=== PATIENT | female | born 1945 | race Two or more races ===

== ENCOUNTER 2023-09-10 22:28 | Inpatient (IN) | payer MEDICARE ==
[~2023-09-10] VITALS: Ht 158 cm; Wt 65.3 kg
[2023-09-10] MEDS ORDERED: MAGNESIUM HYDROXIDE 30 ML UDC PO PRN (23:30)
[2023-09-10] MEDS ORDERED: CALC0.5C11 PO (23:31)
[2023-09-10] MEDS ORDERED: DENO60DI SUBCUT (23:32)
[2023-09-10] MEDS ORDERED: DOXE10CA2 PO (23:36)
[2023-09-10] MEDS ORDERED: ESTR0.5T PO (23:37)
[2023-09-10] MEDS ORDERED: LEVO100T9 PO (23:38)
[2023-09-10] MEDS ORDERED: NAPR500T6 PO (23:39)
[2023-09-10] MEDS ORDERED: PROG100C15 PO (23:42)
[2023-09-10] MEDS ORDERED: RIZA10TA27 PO (23:44)
[2023-09-10] MEDS ORDERED: TRAZ-182 PO (23:45)
[2023-09-10] MEDS ORDERED: DICLOFENAC TOPICAL TOP (23:48)
[2023-09-10] MEDS: BLOOD SUGAR DIAGNOSTIC 1 EACH STRIP IN ONE (23:51)
[2023-09-11] MEDS ORDERED: PROGESTERONE MICRONIZED PO SCH (02:30)
[2023-09-11] MEDS: TEMAZEPAM 7.5 MG CAPSULE PO PRN (02:34)
[2023-09-11] MEDS: ACETAMINOPHEN 325 MG TABLET PO PRN (02:34)
[2023-09-11 07:13] LABS: BASOPHILS % (AUTO) 0.6 % (0.0-2.0); EOSINOPHILS # (AUTO) 0.2 K/uL (0.0-0.7); EOSINOPHILS % (AUTO) 3.4 % (0.0-6.0); HEMATOCRIT 32 % (33-45); HEMOGLOBIN 10.7 g/dL (11.5-14.8); LYMPHOCYTES # (AUTO) 1.8 K/uL (0.8-4.8); LYMPHOCYTES % (AUTO) 25.5 % (20.0-44.0); MEAN CORPUSCULAR HEMOGLOBIN 36 PG (26.0-33.0); MEAN CORPUSCULAR HGB CONC 34 g/dl (31.0-36.0); MEAN CORPUSCULAR VOLUME 105 fL (82-100); MONOCYTES # (AUTO) 0.7 K/uL (0.1-1.30); MONOCYTES % (AUTO) 9.1 % (2.0-12.0); NEUTROPHILS # (AUTO) 4.4 K/uL (1.8-8.9); NEUTROPHILS % (AUTO) 61.4 % (43.0-81.0); PLATELET COUNT (AUTO) 280 K/uL (150-450); RED BLOOD CELL COUNT(AUTO) 2.99 MIL/uL (4.0-5.2); RED CELL DISTRIBUTION WIDTH 14.1 % (11.5-15.0); WHITE BLOOD COUNT (AUTO) 7.2 K/uL (4.3-11.0)
[2023-09-11 07:22] LABS: CALCIUM, SERUM 8.1 mg/dL (8.5-10.1); CREATININE 1.2 mg/dL (0.6-1.3); POTASSIUM 3.8 mmol/L (3.5-5.1)
[2023-09-11 08:00] VITALS: BP 131/67; TEMP 98.6; O2SAT 98
[2023-09-11] MEDS: LEVOTHYROXINE SODIUM 100 MCG TABLET PO SCH (08:12)
[2023-09-11] MEDS ORDERED: RIZATRIPTAN BENZOATE PO PRN (08:30)
[2023-09-11] MEDS: ESTRADIOL 1 MG TABLET PO SCH (13:00)
[2023-09-11] MEDS: DULOXETINE HCL 20 MG CAPSULE.DR PO SCH (14:05)
[2023-09-11 16:00] VITALS: BP 127/61; TEMP 98; O2SAT 98
[2023-09-11] MEDS ORDERED: CALCITRIOL 0.25 MCG CAPSULE PO SCH ×2 (17:00)
[2023-09-11] MEDS: NAPROXEN 500 MG TABLET PO PRN (19:52)
[2023-09-11 20:00] VITALS: BP 127/71; TEMP 98.1; O2SAT 99
[2023-09-12 08:00] VITALS: BP 143/81; TEMP 97.7; O2SAT 97
[2023-09-12] MEDS: VENLAFAXINE 37.5 MG TABLET PO SCH (08:47)
[2023-09-12 16:00] VITALS: BP 120/60; TEMP 98; O2SAT 96
[2023-09-12] MEDS: CALCITRIOL 0.25 MCG CAPSULE PO ONE (16:24)
[2023-09-12 19:31] LABS: THYROID STIMULATING HORMONE 1.971 uIU/mL (0.358-3.74)
[2023-09-12] MEDS: LORAZEPAM 0.5 MG TABLET PO PRN (19:59)
[2023-09-12 20:00] VITALS: BP 120/67; TEMP 98; O2SAT 96
[2023-09-12] MEDS: ONDANSETRON 4 MG TAB.RAPDIS SL PRN (20:50)
[2023-09-12 23:52] LABS: APPEARANCE,URINE CLEAR (CLEAR); BILIRUBIN,URINE NEGATIVE (NEGATIVE); BLOOD, URINE 2+ Ery/uL (NEGATIVE); COLOR,URINE YELLOW (YELLOW); KETONES,URINE NEGATIVE (NEGATIVE); LEUKOCYTE ESTERASE ,URINE 1+ (NEGATIVE); NITRITE, URINE NEGATIVE (NEGATIVE); PH,URINE 6.5 (5.0-8.0); PROTEIN,URINE NEGATIVE (NEGATIVE); UGLUCOSE NEGATIVE (NEGATIVE); UROBILINOGEN,URINE 0.2 EU/dL (0.2)
[2023-09-13 00:37] LABS: ADD URINE CULTURE YES; BACTERIA,URINE 1+ /HPF (None Seen)
[2023-09-13] MEDS: NITROFURANTOIN/MONOHYDRATE MACROCRYSTALS 100 MG CAPSULE PO SCH (02:14)
[2023-09-13] MEDS: MAG HYDROX/AL HYDROX/SIMETH 30 ML UDC PO PRN (05:14)
[2023-09-13 10:07] LABS: FOLIC ACID > 20.0 ng/mL (>3.0)
[2023-09-13] MEDS: CALCITRIOL 0.25 MCG CAPSULE PO ONE (15:02)
[2023-09-13 20:00] VITALS: BP 152/86; TEMP 97.7; O2SAT 97
[2023-09-14 08:00] VITALS: BP 153/84; TEMP 97.6; O2SAT 97
[2023-09-14] MEDS: SUMATRIPTAN SUCCINATE 6 MG/0.5 ML VIAL SQ ONE (13:52)
[2023-09-14] MEDS: DIVALPROEX SODIUM 500 MG TABLET.DR PO ONE (13:52)
[2023-09-14 16:00] VITALS: BP 131/67; TEMP 98.1; O2SAT 100
[2023-09-14 20:42] VITALS: BP 140/79; TEMP 97.9; O2SAT 96
[2023-09-14] MEDS: MAGNESIUM OXIDE 400 MG TABLET PO ONE (21:20)
[2023-09-15 08:00] VITALS: BP 145/74; TEMP 98.1; O2SAT 97
[2023-09-15] MEDS: ESCITALOPRAM OXALATE (10 MG) 10 MG TABLET PO SCH (08:21)
[2023-09-15 15:30] VITALS: BP 143/75; TEMP 97.7; O2SAT 95
[2023-09-15] MEDS: LISINOPRIL (5MG) 5 MG TABLET PO SCH (16:00)
[2023-09-15] MEDS: MAGNESIUM OXIDE 400 MG TABLET PO SCH (21:15)
[2023-09-15 21:32] VITALS: BP 153/76; TEMP 97.9; O2SAT 99
[2023-09-15 23:30] VITALS: BP 138/78; TEMP 98.2; O2SAT 98
[2023-09-16 08:00] VITALS: BP 119/79; TEMP 98.7; O2SAT 99
[2023-09-16 09:10] LABS: ALBUMIN 3.1 g/dL (3.4-5.0); BILIRUBIN,DIRECT 0.2 mg/dL (0.0-0.2); BILIRUBIN,TOTAL 0.7 mg/dL (0.2-1.0); TOTAL PROTEIN, SERUM 6.4 g/dL (6.4-8.2)
[2023-09-16] MEDS: DIVALPROEX SODIUM 250 MG TABLET.DR PO SCH (09:22)
[2023-09-16 16:00] VITALS: BP 146/75; TEMP 97.7; O2SAT 99
[2023-09-16 18:06] LABS: METHYLMALONIC ACID 144 nmol/L (0-378)
[2023-09-16 20:00] VITALS: BP 140/64; TEMP 97.9; O2SAT 99
[2023-09-16 22:12] VITALS: BP 140/64; TEMP 97.9; O2SAT 99
[2023-09-17 08:00] VITALS: BP 124/73; TEMP 97.8; O2SAT 99
[2023-09-17 08:43] VITALS: BP 142/73
[2023-09-17] MEDS: CALCITRIOL 0.25 MCG CAPSULE PO SCH (08:43)
== END 2023-09-17 12:50 | disposition home or self-care (01) | DRG 885 ==
LOC: GPS 22:28
PROVIDERS: ADMIT Psychiatry & Neurology Psychosomatic Medicine; ATTEND Internal Medicine
DX: F39 Unspecified mood [affective] disorder (principal); R45.851 Suicidal ideations; N39.0 Urinary tract infection, site not specified; G40.909 Epilepsy, unspecified, not intractable, without status epilepticus; E03.9 Hypothyroidism, unspecified; F41.9 Anxiety disorder, unspecified; G43.909 Migraine, unspecified, not intractable, without status migrainosus; G47.00 Insomnia, unspecified; G89.29 Other chronic pain; M62.81 Muscle weakness (generalized); B96.20 Unspecified Escherichia coli [E. coli] as the cause of diseases classified elsewhere; F32.9 Major depressive disorder, single episode, unspecified
CPT/HCPCS: 36415; 70450-TC; 80048-TC; 80061-TC; 80076-TC; 81001; 82310-TC; 82607-TC; 82962-TC; 83735-TC; 83921; 84443-TC; 85025-TC; 85652-TC; 87081-TC; 87086-TC; 97110-TC; 97116-TC; 97530-TC; J3030; Q0162